=== PATIENT | male | born 1945 | race African-American/Black ===

== ENCOUNTER 2021-05-29 03:03 | Inpatient (IN) ==
[2021-05-29] MEDS ORDERED: ONDANSETRON 4 MG/2 ML VIAL IV PRN (08:25)
[2021-05-29] MEDS ORDERED: GLUCAGON 1 MG VIAL IM PRN (08:25)
[2021-05-29] MEDS ORDERED: DEXTROSE 50% 25 GM/50 ML VIAL IV PRN (08:25)
[2021-05-29 09:06] LABS: Basophils # 0.1 10*3/uL (0.0-0.2); Basophils % 0.5 % (0.0-0.8); Eosinophils # 0.2 10*3/uL (0.0-0.87); Eosinophils % 1.4 % (0.00-10.9); Hematocrit 44.4 VOL% (42.0-52.0); Hemoglobin 14.5 GM/DL (14.0-18.0); Immature Granulocytes % 0.6 %; Immature Granulocytes Absolute 0.07 #; Lymphocytes # 1.6 10*3/uL (1.4-4.0); Lymphocytes % 14.2 % (21.2-54.2); Mean Corpuscular HGB Conc 32.7 GM/DL (32-36); Mean Corpuscular Volume 90.2 FL (87-102); Mean Platelet Volume 10.6 FL (9.6-12.0); Monocytes % 10.8 % (1.7-12.7); Neutrophils % 72.5 % (38.7-73.9); Platelet Count 333 T/CUMM (130-400); Red Blood Count 4.92 MC/CUMM (3.8-5.5); White Blood Count 11.4 T/CUMM (4-12)
[2021-05-29 09:26] LABS: Albumin 3.5 G/DL (3.4-5.0); Bilirubin,Total 0.8 MG/DL (0.20-1.00); Calcium 8.9 MG/DL (8.5-10.1); Osmolality,Calculated 276.7 MOS/KG (273-304); Potassium 3.9 MMOL/L (3.5-5.1); Total Protein 7.8 G/DL (6.4-8.2)
[2021-05-29 09:27] LABS: Risk Ratio 3.41; VLDL Cholesterol 17.4 MG/DL
[2021-05-29 09:48] LABS: PT Patient Result 11.3 SECS (10.5-12.0)
[2021-05-29 10:01] LABS: High Sensitive Troponin I* 346.4 ng/L (0-78)
[2021-05-29] MEDS ORDERED: ALBUTEROL/IPRATROPIUM 3 ML NEB RESP TX PRN (10:01)
[2021-05-29] MEDS ORDERED: NICOTINE 21 MG/24 HR PATCH TRANSDERM PRN (10:01)
[2021-05-29] MEDS: SODIUM CHLORIDE 0.9% 1,000 ML IV SCH (16:40)
[2021-05-29] MEDS: HEPARIN DRIP 25,000 UNITS/500 ML PREMIX IV SCH (16:40)
[2021-05-29 18:02] LABS: Barbiturates Screen,Urine Negative (Negative); Benzodiazepines Screen,Urine Negative (Negative); Cannabinoid Screen,Urine Positive (Negative); Opiate Screen,Urine Negative (Negative); Phencyclidine Screen,Urine Negative (Negative)
[2021-05-29] MEDS ORDERED: ATORVASTATIN 40 MG TABLET PO SCH (21:00)
[2021-05-30] MEDS ORDERED: HEPARIN 5,000 UNIT/1 ML VIAL IV PRN (01:01)
[2021-05-30] MEDS: SODIUM CHLORIDE 0.9% 1,000 ML IV SCH ×3 (01:21→16:35)
[2021-05-30 05:06] LABS: Basophils % 0.2 % (0.0-0.8); Eosinophils % 0.1 % (0.00-10.9); Hematocrit 39.4 VOL% (42.0-52.0); Hemoglobin 13.3 GM/DL (14.0-18.0); Immature Granulocytes % 0.4 %; Immature Granulocytes Absolute 0.06 #; Lymphocytes # 1.4 10*3/uL (1.4-4.0); Lymphocytes % 8.6 % (21.2-54.2); Mean Corpuscular HGB Conc 33.8 GM/DL (32-36); Mean Corpuscular Volume 88.3 FL (87-102); Mean Platelet Volume 10.6 FL (9.6-12.0); Monocytes % 9.8 % (1.7-12.7); Neutrophils % 80.9 % (38.7-73.9); Platelet Count 307 T/CUMM (130-400); Red Blood Count 4.46 MC/CUMM (3.8-5.5); Red Cell Distribution Width 15.8 % (9.3-17.3); White Blood Count 16.3 T/CUMM (4-12)
[2021-05-30 05:25] LABS: Calcium 8.7 MG/DL (8.5-10.1); Potassium 3.3 MMOL/L (3.5-5.1)
[2021-05-30] MEDS ORDERED: POTASSIUM CHLORIDE 20 MEQ TABLET PO ONE ×2 (10:01→12:00)
[2021-05-30] MEDS: HEPARIN DRIP 25,000 UNITS/500 ML PREMIX IV SCH (16:35)
[2021-05-30] MEDS: METOPROLOL TARTRATE 5 MG/5 ML VIAL IV SCH ×2 (17:50→18:20)
[2021-05-31] MEDS: METOPROLOL TARTRATE 5 MG/5 ML VIAL IV SCH ×4 (00:53→17:00)
[2021-05-31 03:08] LABS: Basophils % 0.3 % (0.0-0.8); Eosinophils # 0.1 10*3/uL (0.0-0.87); Eosinophils % 0.9 % (0.00-10.9); Hemoglobin 12.6 GM/DL (14.0-18.0); Immature Granulocytes % 0.4 %; Immature Granulocytes Absolute 0.03 #; Lymphocytes # 1.3 10*3/uL (1.4-4.0); Mean Corpuscular HGB Conc 34.1 GM/DL (32-36); Mean Corpuscular Volume 88.3 FL (87-102); Mean Platelet Volume 10.8 FL (9.6-12.0); Monocytes % 12.1 % (1.7-12.7); Neutrophils % 70.3 % (38.7-73.9); Platelet Count 272 T/CUMM (130-400); Red Blood Count 4.19 MC/CUMM (3.8-5.5); Red Cell Distribution Width 15.8 % (9.3-17.3); White Blood Count 7.8 T/CUMM (4-12)
[2021-05-31 03:30] LABS: Calcium 8.6 MG/DL (8.5-10.1); Osmolality,Calculated 283.4 MOS/KG (273-304); Potassium 3.8 MMOL/L (3.5-5.1)
[2021-05-31] MEDS: HEPARIN DRIP 25,000 UNITS/500 ML PREMIX IV SCH ×2 (04:38→19:04)
[2021-05-31] MEDS: SODIUM CHLORIDE 0.9% 1,000 ML IV SCH ×2 (06:13→18:06)
[2021-05-31] MEDS ORDERED: hydrALAZINE 20 MG/1 ML VIAL IV SCH (12:30)
[2021-05-31] MEDS ORDERED: hydrALAZINE 20 MG/1 ML VIAL IV PRN (13:00)
[2021-06-01] MEDS: METOPROLOL TARTRATE 5 MG/5 ML VIAL IV SCH ×4 (01:54→19:11)
[2021-06-01 06:33] LABS: Basophils % 0.4 % (0.0-0.8); Eosinophils # 0.1 10*3/uL (0.0-0.87); Eosinophils % 0.6 % (0.00-10.9); Hematocrit 40.2 VOL% (42.0-52.0); Hemoglobin 13.5 GM/DL (14.0-18.0); Immature Granulocytes % 0.3 %; Immature Granulocytes Absolute 0.02 #; Lymphocytes # 1.1 10*3/uL (1.4-4.0); Lymphocytes % 13.7 % (21.2-54.2); Mean Corpuscular HGB Conc 33.6 GM/DL (32-36); Mean Corpuscular Volume 87.8 FL (87-102); Mean Platelet Volume 11.2 FL (9.6-12.0); Monocytes % 10.3 % (1.7-12.7); Neutrophils % 74.7 % (38.7-73.9); Platelet Count 329 T/CUMM (130-400); Red Blood Count 4.58 MC/CUMM (3.8-5.5); Red Cell Distribution Width 15.4 % (9.3-17.3)
[2021-06-01 06:49] LABS: Calcium 8.9 MG/DL (8.5-10.1); Osmolality,Calculated 279.4 MOS/KG (273-304); Potassium 3.5 MMOL/L (3.5-5.1)
[2021-06-01] MEDS ORDERED: TUBERCULIN SKIN TEST 0.1 ML SYRINGE INTRADERM ONE (09:23)
[2021-06-01] MEDS: SODIUM CHLORIDE 0.9% 1,000 ML IV SCH (10:41)
[2021-06-01] MEDS ORDERED: ZIPRASIDONE 20 MG/1 ML VIAL IM ONE (15:12)
[2021-06-01] MEDS ORDERED: ZIPRASIDONE 20 MG/1 ML VIAL IM PRN (15:12)
[2021-06-01] MEDS ORDERED: cloNIDine 0.1 MG/24 HR PATCH TRANSDERM SCH (15:30)
[2021-06-01] MEDS: HEPARIN DRIP 25,000 UNITS/500 ML PREMIX IV SCH (17:35)
[2021-06-02] MEDS: SODIUM CHLORIDE 0.9% 1,000 ML IV SCH (00:56)
[2021-06-02] MEDS: METOPROLOL TARTRATE 5 MG/5 ML VIAL IV SCH ×2 (00:57→07:58)
[2021-06-02 04:22] LABS: Basophils % 0.5 % (0.0-0.8); Eosinophils # 0.1 10*3/uL (0.0-0.87); Eosinophils % 1.2 % (0.00-10.9); Hematocrit 41.6 VOL% (42.0-52.0); Hemoglobin 14.1 GM/DL (14.0-18.0); Immature Granulocytes % 0.4 %; Immature Granulocytes Absolute 0.02 #; Lymphocytes # 1.2 10*3/uL (1.4-4.0); Lymphocytes % 20.4 % (21.2-54.2); Mean Corpuscular HGB Conc 33.9 GM/DL (32-36); Mean Corpuscular Volume 88.1 FL (87-102); Mean Platelet Volume 11.9 FL (9.6-12.0); Monocytes % 12.8 % (1.7-12.7); Neutrophils % 64.7 % (38.7-73.9); Platelet Count 284 T/CUMM (130-400); Red Blood Count 4.72 MC/CUMM (3.8-5.5); Red Cell Distribution Width 15.3 % (9.3-17.3); White Blood Count 5.7 T/CUMM (4-12)
[2021-06-02 05:01] LABS: Calcium 8.9 MG/DL (8.5-10.1); Potassium 3.5 MMOL/L (3.5-5.1)
[2021-06-02 05:47] LABS: PT Patient Result 11.7 SECS (10.5-12.0); Partial Thromboplastin Time 29.3 SECS (23.9-33.8)
[2021-06-02] MEDS: LACTATED RINGERS 1,000 ML IV SCH ×2 (06:59→08:20)
[2021-06-02] MEDS ORDERED: LIDOCAINE 2% 5 ML VIAL ONE (08:26)
[2021-06-02] MEDS ORDERED: propofoL 200 MG/20 ML VIAL IV ONE (08:26)
[2021-06-02] MEDS ORDERED: hydrALAZINE 20 MG/1 ML VIAL ONE (08:44)
[2021-06-02] MEDS: SODIUM CHLORIDE 0.45% 1,000 ML IV SCH (12:13)
[2021-06-02] MEDS ORDERED: METOPROLOL TARTRATE 25 MG TABLET PO SCH (16:00)
[2021-06-02] MEDS: amLODIPine 10 MG TABLET PO SCH (16:03)
[2021-06-02] MEDS: carvediloL 12.5 MG TABLET PO SCH (21:39)
[2021-06-02] MEDS: APIXABAN 5 MG TABLET PO SCH (21:39)
[2021-06-02] MEDS: ATORVASTATIN 80 MG TABLET PEG SCH (21:39)
[2021-06-03 05:55] LABS: Basophils % 0.1 % (0.0-0.8); Eosinophils % 0.1 % (0.00-10.9); Hematocrit 38.4 VOL% (42.0-52.0); Hemoglobin 13.4 GM/DL (14.0-18.0); Immature Granulocytes % 0.4 %; Immature Granulocytes Absolute 0.05 #; Lymphocytes # 0.8 10*3/uL (1.4-4.0); Lymphocytes % 5.7 % (21.2-54.2); Mean Corpuscular HGB Conc 34.9 GM/DL (32-36); Mean Corpuscular Volume 87.3 FL (87-102); Mean Platelet Volume 10.8 FL (9.6-12.0); Monocytes % 7.6 % (1.7-12.7); Neutrophils % 86.1 % (38.7-73.9); Platelet Count 300 T/CUMM (130-400); Red Cell Distribution Width 15.2 % (9.3-17.3); White Blood Count 13.5 T/CUMM (4-12)
[2021-06-03 06:18] LABS: Calcium 8.9 MG/DL (8.5-10.1); Osmolality,Calculated 275.7 MOS/KG (273-304); Potassium 3.3 MMOL/L (3.5-5.1)
[2021-06-03] MEDS: SODIUM CHLORIDE 0.45% 1,000 ML IV SCH (07:25)
[2021-06-03] MEDS: carvediloL 12.5 MG TABLET PO SCH ×2 (09:49→21:01)
[2021-06-03] MEDS: APIXABAN 5 MG TABLET PO SCH ×2 (09:50→21:01)
[2021-06-03] MEDS: amLODIPine 10 MG TABLET PO SCH (09:50)
[2021-06-03] MEDS: POTASSIUM CHLORIDE RIDER 10 MEQ/100 ML PREMIX IV PRN ×4 (13:19→16:55)
[2021-06-03] MEDS: lisinopriL 20 MG TABLET PO SCH (14:32)
[2021-06-03] MEDS: ATORVASTATIN 80 MG TABLET PEG SCH (21:01)
[2021-06-04] MEDS: SODIUM CHLORIDE 0.45% 1,000 ML IV SCH ×2 (04:00→21:50)
[2021-06-04 04:52] LABS: Basophils % 0.2 % (0.0-0.8); Eosinophils # 0.2 10*3/uL (0.0-0.87); Eosinophils % 1.7 % (0.00-10.9); Hematocrit 35.7 VOL% (42.0-52.0); Hemoglobin 12.4 GM/DL (14.0-18.0); Immature Granulocytes % 0.3 %; Immature Granulocytes Absolute 0.03 #; Lymphocytes # 0.8 10*3/uL (1.4-4.0); Lymphocytes % 7.1 % (21.2-54.2); Mean Corpuscular HGB Conc 34.7 GM/DL (32-36); Mean Corpuscular Volume 87.5 FL (87-102); Mean Platelet Volume 11.2 FL (9.6-12.0); Monocytes % 8.8 % (1.7-12.7); Neutrophils % 81.9 % (38.7-73.9); Platelet Count 304 T/CUMM (130-400); Red Blood Count 4.08 MC/CUMM (3.8-5.5); Red Cell Distribution Width 15.3 % (9.3-17.3); White Blood Count 10.6 T/CUMM (4-12)
[2021-06-04 05:17] LABS: Calcium 8.7 MG/DL (8.5-10.1); Potassium 3.4 MMOL/L (3.5-5.1)
[2021-06-04] MEDS: POTASSIUM CHLORIDE RIDER 10 MEQ/100 ML PREMIX IV PRN ×3 (07:30→09:37)
[2021-06-04] MEDS: APIXABAN 5 MG TABLET PO SCH ×2 (09:47→21:41)
[2021-06-04] MEDS: amLODIPine 10 MG TABLET PO SCH (09:47)
[2021-06-04] MEDS: carvediloL 12.5 MG TABLET PO SCH ×2 (09:47→21:41)
[2021-06-04] MEDS: lisinopriL 20 MG TABLET PO SCH (09:47)
[2021-06-04] MEDS: ATORVASTATIN 80 MG TABLET PEG SCH (21:41)
[2021-06-05 05:26] LABS: Basophils % 0.4 % (0.0-0.8); Eosinophils # 0.2 10*3/uL (0.0-0.87); Eosinophils % 1.9 % (0.00-10.9); Hematocrit 33.4 VOL% (42.0-52.0); Hemoglobin 11.6 GM/DL (14.0-18.0); Immature Granulocytes % 0.6 %; Immature Granulocytes Absolute 0.07 #; Lymphocytes # 1.2 10*3/uL (1.4-4.0); Lymphocytes % 10.6 % (21.2-54.2); Mean Corpuscular HGB Conc 34.7 GM/DL (32-36); Mean Platelet Volume 11.7 FL (9.6-12.0); Monocytes % 10.2 % (1.7-12.7); Neutrophils % 76.3 % (38.7-73.9); Platelet Count 264 T/CUMM (130-400); Red Blood Count 3.84 MC/CUMM (3.8-5.5); Red Cell Distribution Width 15.4 % (9.3-17.3); White Blood Count 11.3 T/CUMM (4-12)
[2021-06-05 05:53] LABS: Calcium 8.5 MG/DL (8.5-10.1); Osmolality,Calculated 273.8 MOS/KG (273-304)
[2021-06-05] MEDS: lisinopriL 20 MG TABLET PO SCH (09:17)
[2021-06-05] MEDS: amLODIPine 10 MG TABLET PO SCH (09:17)
[2021-06-05] MEDS: carvediloL 12.5 MG TABLET PO SCH (09:17)
[2021-06-05] MEDS: APIXABAN 5 MG TABLET PO SCH (09:17)
[2021-06-05] MEDS ORDERED: TUBERCULIN SKIN TEST 0.1 ML SYRINGE INTRADERM ONE (10:52)
[2021-06-05 19:47] VITALS: BP 174/66
== END 2021-06-05 19:40 | DRG 65 ==
LOC: SUATTDRO 07:13 → N.4E 07:13 → N.TELEN 05-30 10:15
PROVIDERS: ADMIT Internal Medicine; ATTEND Internal Medicine Geriatric Medicine
PROC: EGDWPEG (ICD-10-PCS; 2021-06-02 07:35)